=== PATIENT | male | born 1955 | race Caucasian/White ===

== ENCOUNTER 2020-04-22 06:10 | Observation (INO) | payer MEDICARE ==
[~2020-04-22] VITALS: Ht 179.1 cm; Wt 92.7 kg
[2020-04-22] MEDS ORDERED: SODIUM CHLORIDE 0.9% 1,000 ML IV SCH (06:30)
[2020-04-22 06:45] VITALS: BP 138/86
[2020-04-22] MEDS ORDERED: ATOR40TA78 PO (06:51)
[2020-04-22] MEDS ORDERED: AMLO-150 PO (06:51)
[2020-04-22] MEDS ORDERED: METO25TA35 PO (06:51)
[2020-04-22 07:22] LABS: BASOPHILS % (AUTO) 1 % (0-1); EOSINOPHILS % (AUTO) 1 % (1-7); LYMPHOCYTES % (AUTO) 26 % (22-44); MEAN CORPUSCULAR HEMOGLOBIN 29.8 pg (27.5-34.5); MEAN CORPUSCULAR HGB CONC 34.1 g/dL (33.2-36.2); MEAN PLATELET VOLUME 8.3 fL (7.4-10.4); MONOCYTES % (AUTO) 11 % (2-9); NEUTROPHILS % (AUTO) 61 % (42-75); PLATELET COUNT 304 x10^3/uL (130-400); RED BLOOD COUNT 4.74 x10^6/uL (4.38-5.82); RED CELL DISTRIBUTION WIDTH 13.9 % (9.4-14.8)
[2020-04-22 07:25] LABS: MD NO
[2020-04-22 07:35] LABS: ANION GAP 3 mmol/L (5-15); CALCIUM 8.7 mg/dL (8.5-10.1); CHLORIDE 108 mmol/L (98-107); CREATININE 0.91 mg/dL (0.7-1.3)
[2020-04-22] MEDS ORDERED: FENTANYL PF 100 MCG/2ML ONE (07:51)
[2020-04-22] MEDS ORDERED: MIDAZOLAM 1 MG/ML, 5ML ONE (07:51)
[2020-04-22] MEDS ORDERED: LIDOCAINE 1%, 20ML ONE (07:51)
[2020-04-22] MEDS ORDERED: ISOPROTERENOL 0.2MG/ML, 5ML ONE (07:51)
[2020-04-22] MEDS ORDERED: METOPROLOL 1 MG/ML, 5ML ONE ×2 (09:02→09:10)
[2020-04-22] MEDS ORDERED: ATORVASTATIN 40 MG TABLET PO SCH (21:00)
[2020-04-22] MEDS ORDERED: METOPROLOL TARTRATE 25 MG TAB PO SCH (21:00)
[2020-04-23] MEDS ORDERED: AMLODIPINE 5 MG TABLET PO SCH (09:00)
== END 2020-04-22 13:28 | disposition home or self-care (01) ==
LOC: CACL 06:10 → ORIP 09:20
PROVIDERS: ADMIT Internal Medicine Cardiovascular Disease; ATTEND Internal Medicine Cardiovascular Disease
DX: I47.1 Supraventricular tachycardia (principal); I10 Essential (primary) hypertension; I48.0 Paroxysmal atrial fibrillation; I48.3 Typical atrial flutter; Z79.899 Other long term (current) drug therapy
CPT/HCPCS: 36415; 71046; 80048; 85025; 93613; 93620; 93621; 93623; C1730; C1894; C2630; G0378; J2250; J3010; J3490

== ENCOUNTER 2020-06-28 13:14 | Outpatient (CLI) | payer MEDICARE ==
[~2020-06-28 13:14] MED LIST changes: -OMNIPAQUE 350 MG/ML, 150 ML BOTTLE ONE
== END 2020-06-28 23:59 | disposition home or self-care (01) ==
LOC: STAR 13:14
PROVIDERS: ATTEND Internal Medicine Cardiovascular Disease
DX: Z20.822 Contact with and (suspected) exposure to COVID-19 (principal)
CPT/HCPCS: 87635

== ENCOUNTER → 2020-06-28 | Outpatient (CLI) | payer MEDICARE ==
[~2020-06-28] MED LIST: AMLO-150 PO; ATOR40TA78 PO; METO25TA35 PO; OMNIPAQUE 350 MG/ML, 150 ML BOTTLE ONE
== END | disposition home or self-care (01) ==
LOC: CFH 11:36
PROVIDERS: ATTEND Internal Medicine Cardiovascular Disease
DX: Z13.6 Encounter for screening for cardiovascular disorders (principal); I48.91 Unspecified atrial fibrillation; R00.2 Palpitations; R55 Syncope and collapse; I25.10 Atherosclerotic heart disease of native coronary artery without angina pectoris
CPT/HCPCS: 71046; 75572; Q9967